=== PATIENT | female | born 1950 | race Caucasian/White ===

== ENCOUNTER 2017-03-28 10:44 | Emergency (ER) ==
[2017-03-28] MEDS ORDERED: DILAUDID 1 MG/ML SYRINGE IM STA (10:51)
[2017-03-28 10:52] VITALS: BP 176/89; TEMP 97.8; BMI 34.5
[2017-03-28 11:08] LABS: BASOPHILS # (AUTO) 0.1 K/uL (0-0.2); BASOPHILS % (AUTO) 0.9 % (0.0-3.0); EOSINOPHILS # (AUTO) 0.2 K/ul (0.0-0.7); EOSINOPHILS % (AUTO) 2.6 % (0.0-7.0); HEMATOCRIT 42.9 % (37.0-47.0); HEMOGLOBIN 14.6 g/dl (12.0-16.0); IMMATURE GRANULOCYTE % (AUTO) 0.3 % (0.0-5.0); LYMPHOCYTES # (AUTO) 2.2 K/uL (0.60-3.4); LYMPHOCYTES % (AUTO) 31.5 (10.0-50.0); MEAN CORPUSCULAR HEMOGLOBIN 29.7 pg (27.0-31.0); MEAN CORPUSCULAR VOLUME 87.2 fl (81.0-99.0); MONOCYTES # (AUTO) 0.5 K/uL (0.4-2.0); NEUTROPHILS % (AUTO) 57.7; PLATELET COUNT 214 10^3/uL (140-440); RED BLOOD COUNT 4.92 10^6/ul (4.20-5.40); WHITE BLOOD COUNT 6.96 K/ul (4.6-10.2)
[2017-03-28] MEDS ORDERED: ZOFRAN 4 MG/2 ML IM STA (11:10)
--- NOTE | 2017-03-28 11:49 | CT ---
EXAM: CT of the maxillofacial region without contrast History: Pain of the left temporomandibular joint. Technique: Multiplanar CT images through the maxillofacial region were obtained without the administ ration of IV contrast Findings: The visualized intracranial contents demonstrate no grossly acute findings. Orbits are in tact. Surrounding soft tissues demonstrate no acute findings. No acute fracture or dislocation. Cl ear paranasal sinuses. Nasal septum is bowed mildly to the right. Bilateral ostiomeatal units are n ot occluded. Mild degenerative changes of the left temporal mandibular joint. The right submandibul ar joint is intact. 1.1 cm left jugular digastric cervical chain lymph node. Impression: 1. Mildly enlarged nonspecific left neck jugulodigastric cervical chain lymph node. Recommend follo wup. 2. 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
[2017-03-28 11:55] LABS: ALANINE AMINOTRANSFERASE 25 U/L (12-78); ALBUMIN 3.8 g/dL (3.4-5.0); ALBUMIN/GLOBULIN RATIO 1.12; ALKALINE PHOSPHATASE 87 U/L (53-141); ANION GAP 13.8; ASPARTATE AMINO TRANSFERASE 25 U/L (15-37); BILIRUBIN,TOTAL 0.62 mg/dL (0.00-1.20); BLOOD UREA NITROGEN 13 mg/dL (7-18); CALCIUM 10.1 mg/dL (8.2-10.2); CARBON DIOXIDE 26 mmol/L (23-31); CHLORIDE 106 mmol/L (98-107); CREATINE KINASE 175 U/L; CREATININE 0.76 mg/dL (0.60-1.30); GLUCOSE 120 mg/dL (82-115); POTASSIUM 3.8 mmol/L (3.5-5.10); SODIUM 142 mmol/L (136-145); TOTAL PROTEIN 7.2 g/dL (5.8-8.1)
[2017-03-28] MEDS ORDERED: DILAUDID 1 MG/ML SYRINGE IVP STA (12:00)
[2017-03-28] MEDS ORDERED: ZOFRAN 4 MG/2 ML IVP STA (12:08)
[2017-03-28] MEDS ORDERED: ATIVAN IVP STA ×2 (12:14→12:48)
--- NOTE | 2017-03-28 12:33 | CT ---
EXAM: CT of the soft tissue neck without contrast History: Left neck pain. Multiplanar CT images through the soft tissue neck were obtained without the administration of IV con trast Comparison: CT maxillofacial 03/28/2017 Findings: Orbits are intact. Visualized intracranial contents demonstrate no gross abnormality. Th e visualized upper lungs are free of consolidation. No acute osseous abnormalities. Epiglottis is n ot thickened. No air-fluid levels seen within the sinuses. Orbits are intact. 1.1 cm mildly enlarg ed left jugular digastric cervical chain lymph node. No discrete thyroid nodules identified by CT. The submandibular glands and parotid glands are not inflamed. Impression: Mildly enlarged nonspecific left jugular digastric cervical chain lymph node. No other significant findings.
[2017-03-28] MEDS ORDERED: SODIUM CHLORIDE 500 ML IV STA (13:01)
--- NOTE | 2017-03-28 13:43 | ED.PDOC ---
General ED Provider: Dr. CAREN OLVERA Chief Complaint: Non-specific Complaint Stated Complaint: neck pain Time Seen by Physician: 11:00 Information Source: Patient Exam Limitations: No limitations Primary Care Provider: MACHO PELAEZ Nursing and Triage Documentation Reviewed and Agree: Yes (no cva symptoms) Miscellaneous Complaint Exam - Complex/Multi-System Complaint/Exam Onset/Duration: chronic with flare ups Symptoms Are: Still present Episodes Lasting: Hours Initial Severity: Mild Current Severity: Mild Location of Pain: left neck Pain Radiates to: left neck no chest pain Character: 0 Aggravatin Alleviatin Associated Signs and Symptoms: Reports: Vomiting. Denies: Confusion, Agitation , Hemoptysis, Chest pain, Palpitations, Edema, Nausea, Diarrhea, Abdominal pain , Back pain, Dysuria, Hematemesis Recent Echo/LV Function: No Respiratory Distress: None JVD Present: No Tachypnea Present: No Stridor Present: No Abdominal Findings: Present: Normal findings Glascow Coma Scale (see protocol): 0 Meningeal Signs Positive: No Focal Weakness: Present: None Focal Sensory Loss: Present: None Gait: Normal Gag Reflex Present: No Babinski Sign: Negative Right, Negative Left Skin Findings: Present: Normal findings Joint Swelling Present: No In-Dwelling Device Present: No Quality Indicators for Cardiac Chest Pain: EKG in 10min. Quality Indicators for AMI: EKG in 10min. Quality Indicator For Non-Traumatic Chest Pain/Syncope: EKG Performed Review of Systems - Review Of Systems Constitutional: Reports: No symptoms Eyes: Reports: No symptoms Ears, Nose, Mouth, Throat: Reports: No symptoms Respiratory: Reports: No symptoms Cardiac: Reports: No symptoms GI: Reports: No symptoms : Reports: No symptoms Musculoskeletal: Reports: Neck pain Skin: Reports: No symptoms Neurological: Reports: No symptoms Endocrine: Reports: No symptoms Hematologic/Lymphatic: Reports: No symptoms All Other Systems: Reviewed and Negative Past Medical History - Past Medical History Previously Healthy: Yes Endocrine: Reports: Hypothyroid Cardiovascular: Reports: Hypertension Respiratory: Reports: None Hematological: Reports: None Gastrointestinal: Reports: None Genitourinary: Reports: None Neuro/Psych: Reports: None Musculoskeletal: Reports: None Cancer: Reports: None Last Menstrual Period: n/a - Surgical History General Surgical History: Reports: None - Family History Family History: Reports: None - Social History Smoking Status: Never smoker Hx Substance Use: No Alcohol Screening: None Physical Exam - Physical Exam Appearance: Well-appearing, No pain distress, Well-nourished Eyes: JUAN, EOMI, Conjunctiva clear ENT: Ears normal, Nose normal, Oropharynx normal Respiratory: Airway patent, Breath sounds clear, Breath sounds equal, Respirations nonlabored Cardiovascular: RRR, Pulses normal, No rub, No murmur GI/: Soft, Nontender, No masses, Bowel sounds normal, No Organomegaly Musculoskeletal: Normal strength, ROM intact, No edema, No calf tenderness Skin: Warm, Dry, Normal color Neurological: Sensation intact, Motor intact, Reflexes intact, Cranial nerves intact, Alert, Oriented Psychiatric: Affect appropriate, Mood appropriate Critical Care Note - Critical Care Note Total Time (mins): 0 Course - Course Hematology/Chemistry: 03/28/17 10:05 03/28/17 10:05 Orders, Labs, Meds: Lab Review 03/28/17 03/28/17 10:05 10:05 WBC 6.96 RBC 4.92 Hgb 14.6 Hct 42.9 MCV 87.2 MCH 29.7 MCHC 34.0 RDW Coeff of Tracy 13.3 Plt Count 214 Immature Gran % (Auto) 0.3 Neut % (Auto) 57.7 Lymph % (Auto) 31.5 [place] % (Auto) 7.0 Eos % (Auto) 2.6 Baso % (Auto) 0.9 Immature Gran # (Auto) 0.0 Neut # 4.0 Lymph # 2.2 [place] # 0.5 Eos # 0.2 Baso # 0.1 Sodium 142 Potassium 3.8 Chloride 106 Carbon Dioxide 26 Anion Gap 13.8 BUN 13 Creatinine 0.76 Estimated GFR (MDRD) 76.00 BUN/Creatinine Ratio 17.10 Glucose 120 H Calcium 10.1 Total Bilirubin 0.62 AST 25 ALT 25 Alkaline Phosphatase 87 Total Creatine Kinase 175 CK-MB (CK-2) 3.0 CK-MB (CK-2) % 1.92600 Troponin I < 0.0100 Total Protein 7.2 Albumin 3.8 Globulin 3.4 Albumin/Globulin Ratio 1.12 Orders Category Date Time Status EKG-(ED ONLY) Stat CARDIO 03/28/17 10:52 Completed EKG-(ED ONLY) Stat CARDIO 03/28/17 12:48 Completed NPO REMINDER: IMAGING ONCE CARE 03/28/17 13:01 Active ED IV/MEDIPORT/POWERPORT .ONCE EMERGENCY 03/28/17 12:00 Active CBC W/ AUTO DIFF Stat LAB 03/28/17 10:05 Completed COMPREHENSIVE METABOLIC PANEL Stat LAB 03/28/17 10:05 Completed CREATINE KINASE Stat LAB 03/28/17 10:05 Completed ESR Stat LAB 03/28/17 10:05 Received TROPONIN I Stat LAB 03/28/17 10:05 Completed 0.9 % Sodium Chloride [Saline Flush] MEDS 03/28/17 12:00 Active 1 syr IVF PRN PRN Hydromorphone HCl [Dilaudid 1 mg/ml Syringe] MEDS 03/28/17 10:51 Discontinued 0.5 mg IM ONCE STA Hydromorphone HCl [Dilaudid 1 mg/ml Syringe] MEDS 03/28/17 12:00 Discontinued 0.5 mg IVP ONCE STA Lorazepam Inj [Ativan] MEDS 03/28/17 12:14 Discontinued 0.5 mg IVP ONCE STA Lorazepam Inj [Ativan] MEDS 03/28/17 12:48 Discontinued 0.5 mg IVP ONCE STA Ondansetron HCl/Pf [Zofran 4 mg/2 ml] MEDS 03/28/17 12:08 Discontinued 4 mg IVP ONCE STA Sodium Chloride 0.9% [Sodium Chloride] 500 ml MEDS 03/28/17 13:[address] MAXILLOFACIAL W/O CONTRAST Stat RADS 03/28/17 10:[address] SOFT TISSUE NECK W/O CONTR Stat RADS 03/28/17 11:18 Completed CTA ANGIO NECK Stat RADS 03/28/17 13:01 Ordered Medications Generic Name Dose Route Start Last Admin Trade Name Freq PRN Reason Stop Dose Admin Sodium Chloride 500 mls @ 500 mls/hr 03/28/17 13:01 Sodium Chloride IV 03/28/17 14:00 BOLUS STA Sodium Chloride 1 syr 03/28/17 12:00 03/28/17 12:14 Saline Flush IVF 1 syr PRN PRN Administration To flush IV Discontinued Medications Generic Name Dose Route Start Last Admin Trade Name Freq PRN Reason Stop Dose Admin Hydromorphone HCl 0.5 mg 03/28/17 10:51 03/28/17 11:07 Dilaudid 1 Mg/Ml Syringe IM 03/28/17 10:52 0.5 mg ONCE STA Administration Hydromorphone HCl 0.5 mg 03/28/17 12:00 03/28/17 12:12 Dilaudid 1 Mg/Ml Syringe IVP 03/28/17 12:01 0.5 mg ONCE STA Administration Lorazepam 0.5 mg 03/28/17 12:14 03/28/17 12:23 Ativan IVP 03/28/17 12:15 0.5 mg ONCE STA Administration Lorazepam 0.5 mg 03/28/17 12:48 Ativan IVP 03/28/17 12:49 ONCE STA Ondansetron HCl 4 mg 03/28/17 12:08 03/28/17 12:15 Zofran 4 Mg/2 Ml IVP 03/28/17 12:09 4 mg ONCE STA Administration Vital Signs: Temp Pulse Resp BP Pulse Ox 03/28/17 10:46 97.8 F 74 20 176/89 H 96 Departure - Departure Time of Disposition: 15:00 (ct reports provided to pt ) Disposition: HOME SELF-CARE Discharge Problem: Neck pain Instructions: Neck Pain (ED) Condition: Good Pt referred to PMD for follow-up: Yes Additional Instructions: Please call your Family Physician as soon as possible to schedule a follow-up appointment. Allergies/Adverse Reactions: Allergies No Known Allergies Allergy (Unverified 07/03/16 13:58) Home Medications: Ambulatory Orders Diazepam 5 mg PO BEDTIME PRN #50 07/03/16 Levothyroxine Sodium [Levo-T] 25 mcg PO DAILY 07/03/16 Lisinopril 5 mg PO DAILY 07/03/16 Naproxen [Naprosyn] 500 mg PO BID PRN #100 07/03/16 Disposition Discussed With: Patient
[2017-03-28 13:59] LABS: ERYTHROCYTE SEDIMENTATION RATE 14 mm/hr (0-20); ESR INTERNAL QC INTERNAL QC VALID
--- NOTE | 2017-03-28 14:14 | CT ---
EXAM: CT angiogram neck. HISTORY: Left-sided neck pain. COMPARISON: Neck CT earlier the same day. TECHNIQUE: Multiple axial images of the neck were obtained prior to and following intravenous admini stration of 125 mL of Omnipaque 350, low osmolar. Multiplanar reformatted images and three -dimensio nal reconstructed images were created on an independent workstation. FINDINGS: The visualized anterior cerebral and middle cerebral arteries are patent. Posterior cereb ral arteries are also patent. Basilar artery is normal in caliber. Both vertebral arteries are norm al in course and caliber although portions of the proximal left vertebral artery are poorly seen due to adjacent intravenous contrast. Both common carotid arteries are normal in course and caliber. Both external carotid arteries are pa tent. Both internal carotid arteries are normal in course and caliber. Enlarged left cervical lymph node that level IIa again noted measuring up to 1 cm short axis. No sub cutaneous edema or fluid collections noted. No acute osseous abnormality identified. Lung apices ar e clear. IMPRESSION: Normal CT angiogram of the neck.
== END 2017-03-28 15:09 | disposition home or self-care (01) ==
LOC: ED 10:44
DX: M54.2 Cervicalgia (principal); R11.10 Vomiting, unspecified; I10 Essential (primary) hypertension; E03.9 Hypothyroidism, unspecified
CPT/HCPCS: 36415; 80053; 82550; 82553; 84484; 85025; 85651; 93005; 93010; 96372; 96374; 96375; 96376; 99283

== ENCOUNTER 2018-08-14 15:30 | Outpatient (RCR) ==
--- NOTE | 2018-07-16 14:22 | RS.OPPTEV2 ---
Date of Note: 07/16/18 Visit #: 1 Number of visits approved by Insurance: n/a Date of Evaluation: 07/16/18 Payer Source: MEDICARE Surgery Performed?: No Treatment Diagnosis: Amyotrophic lateral sclerosis History of Condition/Mechanism of Injury:: pt has been having symptoms since 2016 and was diagnosed with ALS 03/2018. 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 Functional Limitations: Pushing, Pulling, Lifting, Carrying, Standing, Bending, Squatting, Ambulation, Community Access/Integration Current Subjective/complaints:: pt states she is still helping her with ADL's due to his CVA. pt states she feels she is getting weaker and weaker. pt also reports she is having difficulty with swallowing and frequently chokes on food. Treatment Side (optional): N/A *Precautions: fall precautions Medical History Medical History: Hypertension, Arthritis Medical History Comments:: ALS Surgical History: Hysterectomy Surgical History Comments:: myringotomy w tube placement Smoking Status: Never smoker Hx Home Medications: simvastatin, rilvzole, levothyroxine, lisinopril, clonazepam, citalopram and vitamins Patient's Goals: get stronger or atleast not lose more strength. Functional Outcome Measure LE Functional Scale: 24 - G Codes & Severity Modifier G Codes & Modifier: n/a Source of G Code score: n/a Observation - Observation Posture: Forward Head, Rounded Shoulders, Increased Thoracic Kyphosis Handedness: Right Gait - Gait Pattern General Gait Pattern Observation: Crouched Gait, Decrease Stride Lngth (R), Decrease Stride Lngth (L) Gait Comments: pt amb with decreased heel strike/toe off gait pattern with decreased step length and flexed posture. General Range of Motion: WFL's all 4 extr's Muscle Strength: BUE shld flex/ext 4/5, elbow flex/ext 4+/5. RLE hip flex 3+/5 , hip abd 3+/5, add 4/5 knee flex/ext 4-/5, ankle DF 3/5, PF 4-/5. LLE hip flex 4-/5, knee flex/ext 4/5, hip add 4/5, abd 4/5, ankle DF/PF 4/5 Palpation Palpation Findings: None/Normal Sensation - Sensation Right Upper Extremity: Intact/Normal Left Upper Extremity: Intact/Normal Right Lower Extremity: Intact/Normal Left Lower Extremity: Intact/Normal Balance - Sitting Balance Static Sitting Balance: Good Dynamic Sitting Balance: Good - Standing Balance Static Standing Balance: Fair Dynamic Standing Balance: Poor - Comments Balance Assessment Comments: tinetti balance scale: 13/28, which is consistent with high risk of falls. Interventions - Exercise/Activities/Manual Therapy Exercises/Activities: pt performed BLE AP, hip isometric add, SLR, hip abd/add x 5 -10 reps each with rest periods between ex. Manual Therapy: n/a HOME EXERCISE PROGRAM: pt given written HEP including: AP, isometric hip add, SLR, hip abd/add, seated hip flex. - Charges Timed Code Treatment Minutes: 51 Total Treatment Time: 62 Procedures billed for this date of service:: eval med, ex EVALUATION COMPLEXITY LEVEL EVALUATION COMPLEXITY LEVEL: HISTORY: Medium (OA, HTN, ALS), EXAM OF BODY SYSTEMS: Medium (endurance, posture, balance, strength, transfers, gait), CLINICAL PRESENTATION: Medium, CLINICAL DECISION MAKING: Medium Assessment Assessment: pt presents with slurred speech. pt also with decreased strength, balance, endurance as well as gait and transfer ability. Feel pt would benefit from skilled PT for therex for strengthening, balance as well as gait training. Feel pt is safer with rwx than without. Patient Education: Education of Plan of Care Rehab Potential: Good Short Term Goals Goal #1: pt amb in dept with AD independently no LOB Goal to be met by: 08/06/18 Goal #2: pt with improved balance as noted by tinetti score 16 Goal to be met by: 08/06/18 Goal #3: Present with improved strength BLE 4/5 Goal to be met by: 08/06/18 Goal #4: pt independent with initial HEP Goal to be met by: 08/06/18 Mems Engineer Goals Goal #1: pt amb with AD functional community distances SBA Goal to be met by: 08/27/18 Goal #2: pt with improved with tinetti score Goal to be met by: 08/27/18 Goal #3: pt report ability to continue to perform normal household activities Goal to be met by: 08/27/18 Plan - Treatment to be Provided Procedures: Therapeutic Exercises, Therapeutic Activity, Gait Training, Neuromuscular Rehab, Patient Education Modalities: No Modalities - Treatment Plan Frequency: 2-3x a week Duration: 6 weeks Dates of Residential Goals: 08/27/18 Expiration date of current Insurance Approval:: n/a - Treatment Code (1) Amyotrophic lateral sclerosis Code(s): G12.21 - AMYOTROPHIC LATERAL SCLEROSIS (2) Muscle weakness Code(s): M62.81 - MUSCLE WEAKNESS (GENERALIZED) (3) Gait difficulty Code(s): R26.9 - UNSPECIFIED ABNORMALITIES OF GAIT AND MOBILITY (4) Impairment of balance Code(s): R26.89 - OTHER ABNORMALITIES OF GAIT AND MOBILITY
--- NOTE | 2018-07-21 15:53 | RS.OPPTDN ---
Subjective Date of Note: 07/21/18 Visit #: 3 Number of visits approved by Insurance: 2-3x6 Date of Evaluation: 07/16/18 Payer Source: MEDICARE Treatment Diagnosis: Amyotrophic lateral sclerosis Current Subjective/complaints:: Patient states, "I'm alright" when asked about her R leg due to recent fall. She has nickel sized scrape with scab to the R knee and no bruising noted. She says she was a little sore to the R lower leg just below the knee (medially). She denies any soreness from PT exercises, but general fatigue. *Precautions: fall precautions Interventions - Exercise/Activities/Manual Therapy Exercises/Activities: Patient begins with general LE strengthening: QS, SAQ 2# , SLR, ham curls and DF with green tband, hip abd in hooklying with green tband , ball squeezes, Bridging, alternate LE lift with 2# each LE, 3# wand for bilateral shoulder flexion, chest presses, alternate LE lift with UE wand lift 2 # each leg, Trunk rotation with ball, resistance given for trunk laterally ( 2x5 ). All 2x10 reps. 7 and 9# digiflexor x 12 each hand. Sitting at EOB: Ant/ post and lateral resistance for improving trunk bal 2x5 eyes open and closed. 3 # wand for bilateral shoulder flexion, green tband for scapular retraction 2x10. Reaching for cones diagonally with 2# cuff on each UE and stacking them on bedside table 3x6. Standing CGA for hip abd, toe raises alternately x 10. Total minutes of Exercise: 38 Manual Therapy: n/a HOME EXERCISE PROGRAM: pt given written HEP including: AP, isometric hip add, SLR, hip abd/add, seated hip flex. - Charges Timed Code Treatment Minutes: 38 Total Treatment Time: 38 Procedures billed for this date of service:: ex3 Assessment: Patient presents to dept with w/c for safety by staff. She brings WB. Patient jon all therex with intermittent rest breaks. Patient jon progression of weight and alternating UE/LE well. She does have posterior sway with trunk exercises such as postural pull backs and bilateral UE elevation. Patient is able to maintain bal with resisted ant/post/lateral nudging. She is able to reach across and perform diagonal reach well. Patient Education: Home Exercise Program, Home Safety, Education of Plan of Care Patient demonstrates compliance with HEP?: Yes Short Term Goals Goal #1: pt amb in dept with AD independently no LOB Goal to be met by: 08/06/18 Comments:: Will work on next session and within the dept Goal #2: pt with improved balance as noted by tinetti score Goal to be met by: 08/06/18 Goal #3: Present with improved strength BLE 4/5 Goal to be met by: 08/06/18 Goal #4: pt independent with initial HEP Goal to be met by: 08/06/18 Head Wrestling Coach Goals Goal #1: pt amb with AD functional community distances SBA Goal to be met by: 08/27/18 Goal #2: pt with improved with tinetti score Goal to be met by: 08/27/18 Goal #3: pt report ability to continue to perform normal household activities Goal to be met by: 08/27/18 Plan Dates of Head Wrestling Coach Goals: 08/27/18 Expiration date of current Insurance Approval:: 08/27/18 PLAN: Progress therex to UE/LE and core to provide increased bal with gait and prevent falls.
--- NOTE | 2018-07-22 09:29 | RS.OPPTDN ---
Subjective Date of Note: 07/18/18 Visit #: 2 Number of visits approved by Insurance: 2-3x6, Reassess at 10th Date of Evaluation: 07/16/18 Payer Source: MEDICARE Treatment Diagnosis: Amyotrophic lateral sclerosis Current Subjective/complaints:: Patient says she has tried HEP. When asked, patient denies having difficulty with ADLs, but says she does want to gain strength. States she does not use any AD at home due to open floor plan. She is accompanied by nimisha. *Precautions: fall precautions Interventions - Exercise/Activities/Manual Therapy Exercises/Activities: Patient performs QS, SAQ 1 1/2#, hams curls/DF with red tband, hip abd in hooklying red tband, ball squeezes, trunk rotation with ball, resisted trunk rotation (x5), isometric hip flexion, bridging, alternating LE lift with 1 1/2# ea and 1# wand for bilateral UEs, SLR all x 12 reps. Sitting: isometrics for sitting bal (nudging ant/post/laterally x 3 ea), 7# digiflexors bilateral hands x 12 ea, 2# wand for bilateral shoulder flexion, scap retraction with red tband, alternate LAQ 1 1/2#, reaching diagonals using cones across body at different heights 2x6 cones and stack. Total minutes of Exercise: 38 Manual Therapy: n/a HOME EXERCISE PROGRAM: pt given written HEP including: AP, isometric hip add, SLR, hip abd/add, seated hip flex. - Charges Timed Code Treatment Minutes: 38 Total Treatment Time: 38 Procedures billed for this date of service:: EX2, neuro1 Assessment: As patient was amb back to our dept with granddaughter and I, her R foot tripped on our wall chair. I was on the L side of her and as she was loosing her bal. I supported her on the L side and she fell onto her R knee. She had a small scrape to the R knee anteriorally and tiny scrape without bleeding to the R palm. Patient was asked several times about going to the ER and she denied saying repeatedly she was fine. She was assisted up x 2 PT staff and transferred to w/c. Patient was able to perform all therex without reporting pain or c/o's. No visual difficulty noted. She requires cueing to maintain erect posture with sitting exercises that require UEs therex. She should benefit from further therex to improve general strength, bal, and gait. She is assisted out of dept to car via w/c. Patient Education: Education of diagnosis, Home Exercise Program, Home Safety, Education of Plan of Care Patient demonstrates compliance with HEP?: Yes Short Term Goals Goal #1: pt amb in dept with AD independently no LOB Goal to be met by: 08/06/18 Goal #2: pt with improved balance as noted by tinetti score [id number] Goal to be met by: 08/06/18 Goal #3: Present with improved strength BLE 4/5 Goal to be met by: 08/06/18 Goal #4: pt independent with initial HEP Goal to be met by: 08/06/18 Progress towards Goal:: Progressing Barrel Cleaner Goals Goal #1: pt amb with AD functional community distances SBA Goal to be met by: 08/27/18 Goal #2: pt with improved with tinetti score 19/28 Goal to be met by: 08/27/18 Goal #3: pt report ability to continue to perform normal household activities Goal to be met by: 08/27/18 Plan Dates of Barrel Cleaner Goals: 08/27/18 Expiration date of current Insurance Approval:: 08/27/18 PLAN: Continue TIW for therex and gait training
--- NOTE | 2018-07-23 11:50 | RS.BEDDYS ---
Subjective Number of treatment sessions: 1 Date of Evaluation: 07/23/18 Treatment Diagnosis: ALS, speech and swallow difficulty Current Level of Function: This 67 year old female was referred to speech therapy for speech and swallow difficulty. She was diagnosed with ALS in March 2018. Over four-five months she has noted a change with voice production and swallow function. Her swallow function changes put her at risk for aspiration. Current Diet: Self-restricted regular textures. Mechanical soft and puree textures. thin liquids Current Subjective/complaints:: The patient is verbal, but requires occasional repetition due to speech intelligibilty and voice production. She reported her voice "stops and feels like she can't talk." She went on to state, she feels her breath support is adequate, however she loses her voice when speaking over long periods of time. For swallowing concerns, she did not report or verbalize any concerns initially. However, after questioning from the APPLICATION INTEGRATION SPECIALIST and her granddaughter report, she did verbalize difficulty with majority of food and liquids consumed. The granddaughter reported, the patient "gets choked on everything." She also reported she has gotten worse recently and is now coughing or choking at every meal. The granddaughter and patient also stated there are less than ten food items that she consumes on a daily basis that are safely swallowed without difficulty. Medical History Comments:: ALS Hx Home Medications: Refer to medications list in chart for complete list. Patient's Goals: To consume safest and least restrictive diet. To improve voice production, speaking endurance, and speech intelligibility. General Information - General Ability to Follow Directions: Excellent Is Patient able to Repeat Directions?: Yes Oral Expression Ability: Moderate Impairment (Occasional repetition with longer speech utterances. Fatigue after 45-60 minutes speaking decreases speech intelligibility.) - Voice Voice Quality: Weak Voice Pitch: Mildly Low, Limited Variation (Difficulty with rising pitch) Voice Loudness: Moderately Soft/Quiet, Limited Variation Oral-Facial Assessment - Dental/Labial Teeth Characteristics: Intact/Normal, Missing (2 molars missing upper.) Teeth Comment: Teeth in great condition. Will not affect mastication. Lip Protrusion: Reduced ROM Lip Retraction: Reduced ROM Puff Cheeks: Reduced Strength Lips Comment: Lip movements completed w/o mirror for feedback-which may improve ROM - Lingual Protrusion: Reduced ROM Retraction: Reduced ROM Tip Lateralization: Reduced ROM Repeated Tip Lateralization: Reduced ROM Tip Elevation: Weak Repeated Tip Elevation: Weak Comments: Second trial of lingual lateralization improved with v/v cues. Lingual tremor noted - Comments/Additional Info. Comments:: During oral motor examination head movements and eye movements included to move tongue. mandibular strength equal and adeuqate for mastication and speech movements. Food Presentation - Solids Food Presented: Mechanical Soft (finger-food self fed.) Behaviors/Comments: Three trials were presented. Pt was given miriam cracker and consumed 1/2 in three bites. Bite sizes were reported appropriate from pt. Pt took initial bite on right side. Food maintained in front of oral cavity. APPLICATION INTEGRATION SPECIALIST observed poor labial seal, decreased rotary chew, difficulty with bolus manipulation, poor to no A-P movement with bolus, pocketing in right sulcus, and difficulty with swallow initiation. Second trial pt was given v/v cues, however demonstrated similar behaviors. Liquid wash was presented and pt manipulated bolus to back of mouth for improved coordination with swallow initiation. Third trial was presented and pt had overt s/s of aspiration. However, reported coughing was due to habit, vs feeling food stuck in throat or residuals on lingual surface. Food Presented: Pureed (More pudding texture than puree.) Behaviors/Comments: Pt consumed two trials via spoon, self fed. Initial trial, pt placed spoon midline and manipulated bolus to back of mouth. She required seven seconds to initiate swallow. Second trial was similiar with 8 second swallow delay and head movements, throat touching to finish swallow. - Liquids Liquid Presented: Thin (1/4, 1/2 tsp via spoon controlled by APPLICATION INTEGRATION SPECIALIST.) Behaviors/Comments: 1/4 tsp trial presented to pt midline. Pt consumed thin liquids with head in neutral position and 3x swallow. Discoordination of muscle movments were observed with cervical palpation. 1/2 tsp pt had immediate cough and overt s/s of aspiration. Liquid Presented: Rewey (Via open cup pt presentation.) Behaviors/Comments: The APPLICATION INTEGRATION SPECIALIST presented the NT liquids and instructed pt to take a drink. Laryngeal palpation was completed during three trials. Pt had 3 second average swallow delay. minimal laryngeal elevation was noted and lingual pumping was felt during palpation. Large air gulps were heard during cervical auscultation. No overt s/s of aspiration were observed. - Recommendations: Dysphagia Evaluation Dietary Recommendations: Dysphagia Pureed, Dysphagia Mechanical Soft, Rewey-thick liquids Comments:: Pt was educated on regular diet and mixed texture consistencies restrictions. nectar thick liquid consistency was recommended for safe swallowing. Pt was educated on miya free-water protocol for home environment as water was requested. No thin liquids with PO intake to reduce risk for aspiration pneumonia. Small frequent meals were discussed and will be further educated and recommended in follow-up treatment. Dysphagia Swallow Precautions/Strategies: Sitting Upright (90 deg), No Straw, Liquids from Cup, Small Bites and Sips, Alternate Liquids/Solids Comments:: Pt to reduce duration with meals from 45 minutes to 25 minutes. All meals sitting-upright. No PO intake with fatigue or sleepiness, post PT, or long speaking durations. Allow muscle/vocal rest prior to PO consumption. Monitor s/s of aspiration. Follow safe swallow precautions and aspiration precuations during all PO intake. Monitor dairy intake, and limit with meals. - Summary Dysphagia Evaluation Summary: Pt presents with moderat-severe oropharyngeal dysphagia. The patient's deficits are characterized by decreased ROM with labial and lingual function, decreased coordination with bolus manipulation, decreased pressure within oral cavity for swallow initiation, lingual pumping and moderate delay in swallow initiation, minimal laryngeal elevation and excursion, multiple swallows with liquids and food textures, coughing and overt s/s of aspiration during PO intake. Pt is at risk for aspiration with PO intake and further skilled ST for education and training is warranted for safety with PO intake. Further Therapy Indicated?: Yes Rehab Potential: Fair (Pt has degenerative disease, however compensation and maintenance of current function will be primary goals for quality of life.) Functional Reporting G Codes: Current CL Goal CK Severity Impairment Rationale: Pt is on mechanical soft and puree diet textures with recommended nectar thick liquids. Short Term Goals Problem: oral motor Goal #1: Pt to complete oral motor exercises to increase ROM and coord 5x/10 reps. Goal to be met by: 08/13/18 Problem: Swallow delay Goal #2: thermal/sour stimulation to improve swallow initiation to 3-4 seconds. Goal to be met by: 08/27/18 Problem: Aspiration Goal #3: Pt to safely swallow liquids with PO intake w/o overt s/s of aspiration Goal to be met by: 09/10/18 Problem: Aspiration Goal #4: Safely consume diet textures presented over 25 min w/o overt s/s of asp. Goal to be met by: 09/10/18 Detention Goals Problem: Safe swallow Goal #1: Pt to verbalize safe swallow education to decrease risk for asp Goal to be met by: 09/17/18 Problem: Safe swallow Goal #2: Pt to demonstrate use of comp/safe swallow strategies with PO intake. Goal to be met by: 09/17/18 Problem: Safe Swallow Goal #3: Pt to consume typical meal and liquids w/o overt s/s of aspiration. Goal to be met by: 09/17/18 Plan Duration of Treatment: 8 weeks Frequency of Treatment: 1x/week Anticipated Discharge Destination: Home Comments: Pt to begin therapy 1x/week with caregiver present to become educated on safe swallowing precautions. - Treatment Code (1) Oropharyngeal dysphagia Code(s): R13.12 - DYSPHAGIA, OROPHARYNGEAL PHASE
--- NOTE | 2018-07-23 13:28 | RS.OPPTDN ---
Subjective Date of Note: 07/23/18 Visit #: 4 Number of visits approved by Insurance: Reassess at 10th Date of Evaluation: 07/16/18 Payer Source: MEDICARE Treatment Diagnosis: ALS, speech and swallow difficulty Current Subjective/complaints:: Patient says she hasn't had any trouble jon exercises. She says she tries to do everything a little slower and take her time at home. She says she has been walking at home without AD. *Precautions: fall precautions Interventions - Exercise/Activities/Manual Therapy Exercises/Activities: Patient begins with passive hamstring stretching bilaterally, SKTC, and lower trunk rotation x 3 due to pt c/o cramping to the posterior thigh. She performs QS, SAQ increased to 2#, hams curls/DF increased to green tband, hip abd in hooklying increased to green tband, ball squeezes, trunk rotation with ball, resisted trunk rotation (x5), isometric hip flexion, discontinued bridging due to hamstring spasm, alternating LE lift increased to 2 # ea and 1# wand for bilateral UEs, SLR (x8) all 2 x 12 reps. Sittin# wand for bilateral shoulder flexion, scap retraction progressed to green tband, alternate LAQ 2#, reaching diagonals and challenging ant/post trunk with leaning forward for ball near floor and up above head multiple reps using 2# cuff weights across body at different heights. EOB for UBE x 2 mins forward, 2 backwards with 2# cuff weights on each wrist. Then, standing the same time and position. Gait training using NBQC on the R with granddaughter pushing w/c behind if needed. Patient slow, cautious and after 20', she says she does not need AD and sets it down. She does however, use handrail on the R and BLOW OFF WORKER on the L x 120' to the front door. She receives intermittent cueing for cane usage with LE's and to look forward and hold onto handrail/my hand. No LOB observed. Total minutes of Exercise: 53 Manual Therapy: n/a HOME EXERCISE PROGRAM: pt given written HEP including: AP, isometric hip add, SLR, hip abd/add, seated hip flex. - Charges Timed Code Treatment Minutes: 53 Total Treatment Time: 53 Procedures billed for this date of service:: ex2, neuro, gt Assessment: Patient just evaluated today by our PATTERNATOR prior our session. Somewhat fatigued, but able to perform all given therex. She does have hamstring muscle spasm during bridging bilaterally. This resolved after passive stretching. She maintains better bal with sitting exercises, not swaying as much with ant/low pressure boiler tender leans and none with using UBE. She is able to jon ~5 mins standing for UBE today and able to amb to/from dept using NBQC, then progressed to no AD, but used handrail and BLOW OFF WORKER of CBX OPERATOR CGA. Patient Education: Education of diagnosis, Home Exercise Program, Home Safety Patient demonstrates compliance with HEP?: Yes Short Term Goals Goal #1: pt amb in dept with AD independently no LOB Goal to be met by: 08/06/18 Progress towards Goal:: Progressing Goal #2: pt with improved balance as noted by tinetti score Goal to be met by: 08/06/18 Goal #3: Present with improved strength BLE 4/5 Goal to be met by: 08/06/18 Goal #4: pt independent with initial HEP Goal to be met by: 08/06/18 Progress towards Goal:: Progressing Metal Flow Coordinator Goals Goal #1: pt amb with AD functional community distances SBA Goal to be met by: 08/27/18 Goal #2: pt with improved with tinetti score Goal to be met by: 08/27/18 Goal #3: pt report ability to continue to perform normal household activities Goal to be met by: 08/27/18 Plan Dates of Metal Flow Coordinator Goals: 08/27/18 Expiration date of current Insurance Approval:: 08/27/18 PLAN: Continue with progressive therex and bal exercises
--- NOTE | 2018-07-25 13:37 | RS.CXNS ---
Date of scheduled appointment: 07/25/18 Type: Cancel Reason for Cancel/NS: granddaughter called says she has a migraine.
--- NOTE | 2018-07-28 16:24 | RS.OPPTDN ---
Subjective Date of Note: 07/28/18 Visit #: 5 Number of visits approved by Insurance: Reassess at 10th Date of Evaluation: 07/16/18 Payer Source: MEDICARE Treatment Diagnosis: ALS, speech and swallow difficulty Current Subjective/complaints:: Patient says she feels she is gaining strength. She says that she has not fallen at home since beginning therapy, but [facility] in the [facility]. *Precautions: fall precautions Interventions - Exercise/Activities/Manual Therapy Exercises/Activities: Patient begins with passive hamstring stretching bilaterally, SKTC, and lower trunk rotation x 3 She performs QS, SAQ increased to 2#, hams curls/DF increased to green tband, hip abd in hooklying increased to green tband, ball squeezes, trunk rotation with ball, resisted trunk rotation (x5), isometric hip flexion, bridging, alternating LE lift increased to 2# ea and 1# wand for bilateral UEs, SLR (x10) all 2 x 12 reps. Sittin# wand for bilateral shoulder flexion, scap retraction progressed to green tband, alternate LAQ 2#, reaching diagonals and challenging ant/post trunk with leaning forward for ball near floor and up above head multiple reps using 2# cuff weights across body at different heights. EOB for UBE x 2 mins forward, 2 backwards with 2 1/2# cuff weights on each wrist. Then, standing the same time and position. Standing at railing with CGA hip abd,marching x 10. Stationary bike forward x 2 1/2mins, 1 1/2 mins retro. Patient slow, cautious and after 20', she says she does not need AD and sets it down. She does however, use handrail on the R and WASH OIL COOLER OPERATOR on the L x 120' to the front door. She receives intermittent cueing for cane usage with LE's and to look forward and hold onto handrail/my hand. No LOB observed. Total minutes of Exercise: 43 Manual Therapy: n/a HOME EXERCISE PROGRAM: pt given written HEP including: AP, isometric hip add, SLR, hip abd/add, seated hip flex. - Charges Timed Code Treatment Minutes: 43 Total Treatment Time: 43 Procedures billed for this date of service:: ex2, neuro1 Assessment: Patient progressing with general therex demo improved strength and jon to all UE/LE/trunk. Patient continues to demo slight unsteadiness intermittently. She is performing HEP well. Patient Education: Home Exercise Program, Home Safety, Education of Plan of Care Patient demonstrates compliance with HEP?: Yes Short Term Goals Goal #1: pt amb in dept with AD independently no LOB Goal to be met by: 08/06/18 Progress towards Goal:: Progressing Goal #2: pt with improved balance as noted by tinetti score 16/28 Goal to be met by: 08/06/18 Goal #3: Present with improved strength BLE 4/5 Goal to be met by: 08/06/18 Goal #4: pt independent with initial HEP Goal to be met by: 08/06/18 Progress towards Goal:: Progressing Diabetologist Goals Goal #1: pt amb with AD functional community distances SBA Goal to be met by: 08/27/18 Goal #2: pt with improved with tinetti score 19/28 Goal to be met by: 08/27/18 Goal #3: pt report ability to continue to perform normal household activities Goal to be met by: 08/27/18 Plan Dates of Diabetologist Goals: 08/27/18 Expiration date of current Insurance Approval:: 08/27/18 PLAN: Patient to continue with progressive bal and strengthening.
--- NOTE | 2018-07-30 16:46 | RS.OPPTDN ---
Subjective Date of Note: 07/30/18 Visit #: 6 Number of visits approved by Insurance: Reassess at 10th Date of Evaluation: 07/16/18 Payer Source: MEDICARE Treatment Diagnosis: ALS, speech and swallow difficulty Current Subjective/complaints:: Patient says we are helping her and she is gaining strength. *Precautions: fall precautions Interventions - Exercise/Activities/Manual Therapy Exercises/Activities: Patient begins with passive hamstring stretching bilaterally, SKTC, and lower trunk rotation x 3 She performs QS, SAQ increased to 2#, hams curls/DF increased to green tband, hip abd in hooklying increased to green tband, ball squeezes, trunk rotation with ball, resisted trunk rotation (x5), isometric hip flexion, bridging, alternating LE lift increased to 2# ea and 3# wand for bilateral UEs, SLR (x10) all 2 x 12 reps. Sittin# wand for bilateral shoulder flexion, scap retraction progressed to green tband, alternate LAQ 2#, UBE unavailable. Standing at railing with CGA hip abd,marching x 10. Stationary bike forward x 3 1/2mins, 1 1/2 mins retro. Patient slow, cautious and amb with handrail on the R side and TAX ATTORNEY for the L CGAQ without LOb, however, can distract easily. Total minutes of Exercise: 38 Manual Therapy: n/a HOME EXERCISE PROGRAM: pt given written HEP including: AP, isometric hip add, SLR, hip abd/add, seated hip flex. - Charges Timed Code Treatment Minutes: 38 Total Treatment Time: 38 Procedures billed for this date of service:: ex3 Assessment: Patient continues to advance with strengthening to LEs and UEs maintaining sitting bal as exercises are progressed. She demo less unsteadiness with gait in our dept. Patient Education: Home Exercise Program, Home Safety Patient demonstrates compliance with HEP?: Yes Short Term Goals Goal #1: pt amb in dept with AD independently no LOB Goal to be met by: 08/06/18 Progress towards Goal:: Progressing Goal #2: pt with improved balance as noted by tinetti score Goal to be met by: 08/06/18 Goal #3: Present with improved strength BLE 4/5 Goal to be met by: 08/06/18 Progress towards Goal:: Progressing Goal #4: pt independent with initial HEP Goal to be met by: 08/06/18 Progress towards Goal:: Progressing Porcelain Enamel Installer Goals Goal #1: pt amb with AD functional community distances SBA Goal to be met by: 08/27/18 Goal #2: pt with improved with tinetti score Goal to be met by: 08/27/18 Goal #3: pt report ability to continue to perform normal household activities Goal to be met by: 08/27/18 Plan Dates of Porcelain Enamel Installer Goals: 08/27/18 Expiration date of current Insurance Approval:: 08/27/18 PLAN: Continue to progress therex for the UEs and LEs/trunk to gain bal and control for gait.
--- NOTE | 2018-08-01 12:15 | RS.DYSPHTX ---
Dysphagia Treatment Note Date of Note: 08/01/18 Visit #: 2 Time of Treatment: 11:00 Subjective: Pt reported no new concerns. She was accompanied by her granddaughter whom is her caregiver. The granddaugther reported the patient was increasing her awareness with textues she can/cannot consume. She also reported going to buy thickener this date. No aspiration episodes reported. Total treatment time: 60 - Short Term Goals Goal #1: Pt to complete oral motor exercises to increase ROM and coord 5x/10 reps. Goal #2: thermal/sour stimulation to improve swallow initiation to 3-4 seconds. Goal #3: Pt to safely swallow liquids with PO intake w/o overt s/s of aspiration Goal #4: Safely consume diet textures presented over 25 min w/o overt s/s of asp. - Long-Term Goals Goal #1: Pt to verbalize safe swallow education to decrease risk for asp Goal #2: Pt to demonstrate use of comp/safe swallow strategies with PO intake. Goal #3: Pt to consume typical meal and liquids w/o overt s/s of aspiration. Assessment: Pt was given verbal education on evaluation to STG and LTGs. The FUR FINISHER SEAMSTRESS began education with lingual/labial coordination. Discussion with aspiration risks and precuations were completed. Oral-motor exercises were reviewed, but not started yet this date. The FUR FINISHER SEAMSTRESS assessed pt with thickener education and mixing nectar-thick drinks. The patient and caregiver verbalized and demonstrated the steps to mixing a nectar thick drink. temperature precautions were also educated, as well as different types of liquids, and use of ice. The patient consumed 4 oz of nectar thick liquids without overt s/s of aspiration. - Units Charged Swallowing Therapy: 4 - Plan Frequency of Treatment: 1x/week Duration of Treatment: 10 weeks Comments: Next session the patient will begin oral motor exercises, diet trials , trial compensatory swallow strategies, and review anatomy and physiology of the swallow.
--- NOTE | 2018-08-04 16:06 | RS.OPPTDN ---
Subjective Date of Note: 08/04/18 Visit #: 7 Number of visits approved by Insurance: Reassess at 10th Date of Evaluation: 07/16/18 Payer Source: MEDICARE Treatment Diagnosis: ALS, speech and swallow difficulty Current Subjective/complaints:: Patient says, "I am stronger." She says her bal seems to be getting better and she is able to swallow and eat with less fear of choking. *Precautions: fall precautions Interventions - Exercise/Activities/Manual Therapy Exercises/Activities: Patient continues with passive hamstring stretching bilaterally, SKTC, piriformis, and lower trunk rotation x 3 She performs QS, SAQ increased to 3#, hams curls/DF increased to green tband, hip abd in hooklying increased to green tband, ball squeezes, trunk rotation with ball, resisted trunk rotation (x5), isometric hip flexion, bridging, alternating LE lift increased to 2# ea and 3# wand for bilateral UEs, SLR (x10) all 2 x 12 reps. Supine chest press and overhead bilateral shoulder flexion 6# 2x10. Sitting: Nudging with eyes open and closed for Ant/post/lateral shift 2x3. 3 # wand for bilateral shoulder flexion, scap retraction green tband, alternate LAQ 3#, UBE unavailable. Standing at railing with CGA hip abd,marching x 10. Stationary bike forward x 3 1/2mins, 1 1/2 mins retro. Began leg presses @ 30 and 45# x 12 reps. Patient slow, cautious and amb with handrail on the R side and HOMEMAKER COMPANION for the L hand without LOB in hallway, however, does occasionally stumble with the R LE due to gripping of shoe (pt says). Total minutes of Exercise: 46 Manual Therapy: n/a HOME EXERCISE PROGRAM: pt given written HEP including: AP, isometric hip add, SLR, hip abd/add, seated hip flex. - Charges Timed Code Treatment Minutes: 46 Total Treatment Time: 46 Procedures billed for this date of service:: neuro1, ex2 Assessment: Patient experiencing improved strength generally throughout her body acknowledging improvement in swallowing/eating. She continues to occasionally trip at the R LE she admits from her shoes, but she easily regains balance in hallway by using R handrail. Janneth's gait continues to require at lease CGA and 1 HOMEMAKER COMPANION to ensure safety with amb to our dept due to occasional trip. She continues to progress well with all UE/LE and trunk strengthening this week. Patient Education: Home Exercise Program, Home Safety Patient demonstrates compliance with HEP?: Yes Short Term Goals Goal #1: pt amb in dept with AD independently no LOB Goal to be met by: 08/06/18 Progress towards Goal:: Progressing Goal #2: pt with improved balance as noted by tinetti score Goal to be met by: 08/06/18 Comments:: Will reassess at 10th visit Goal #3: Present with improved strength BLE 4/5 Goal to be met by: 08/06/18 Progress towards Goal:: Progressing Goal #4: pt independent with initial HEP Goal to be met by: 08/06/18 Progress towards Goal:: Progressing Clinical Administrative Coordinator Goals Goal #1: pt amb with AD functional community distances SBA Goal to be met by: 08/27/18 Goal #2: pt with improved with tinetti score Goal to be met by: 08/27/18 Goal #3: pt report ability to continue to perform normal household activities Goal to be met by: 08/27/18 Plan Dates of Clinical Administrative Coordinator Goals: 08/27/18 Expiration date of current Insurance Approval:: 08/27/18 PLAN: Continue with strengthening therex and bal activities.
--- NOTE | 2018-08-06 13:51 | RS.CXNS ---
Date of scheduled appointment: 08/06/18 Type: Cancel Reason for Cancel/NS: Janneth says she doesn't feel like getting out in the weather today.
--- NOTE | 2018-08-08 13:40 | RS.DYSPHTX ---
Dysphagia Treatment Note Date of Note: 08/08/18 Visit #: 3 Time of Treatment: 11:00 Subjective: Pt arrived to session early with daughter present. Daughter participated in skilled ST and received verbal education and training for aspiration precautions. The patient verbalized no new concerns with swallowing function, however had concerns with speech intelligibility. The CONFECTIONERY LABORATORY MANAGER noted decreased speech intelligibility impacting approximately 75% of spoken utterances. The patient and daughter verbalized use of thickener in drinks with all meals, and observed the Je free-water protocol between meals. Total treatment time: 60 - Short Term Goals Goal #1: Pt to complete oral motor exercises to increase ROM and coord 5x/10 reps. Activity/Accuracy: Anabel introduced, trained and educated. Pt completed 1x/10 attempts. Goal #2: thermal/sour stimulation to improve swallow initiation to 3-4 seconds. Goal #3: Pt to safely swallow liquids with PO intake w/o overt s/s of aspiration Goal #4: Safely consume diet textures presented over 25 min w/o overt s/s of asp. - Acid Purification Equipment Operator Goals Goal #1: Pt to verbalize safe swallow education to decrease risk for asp Goal #2: Pt to demonstrate use of comp/safe swallow strategies with PO intake. Goal #3: Pt to consume typical meal and liquids w/o overt s/s of aspiration. Assessment: The CONFECTIONERY LABORATORY MANAGER continued education and training with swallowing anatomy/ physiology to improve awareness symptoms with dysphagia. Aspiration risks education and trainign with focused verbal and visual information to increase awareness for risks with aspiration. Heimlich manuever and universal choking signs were also discussed in detail for pt safety. Food inventory was taken to guide the CONFECTIONERY LABORATORY MANAGER in pts current safe textures and to educate pt on concerns with current diet. Pt has a risk for aspiration with reported textures consumed in the home environment. The CONFECTIONERY LABORATORY MANAGER provided extension education to pt and daughter on risks. - Units Charged Swallowing Therapy: 4 - Plan Comments: Next session begin two more oral motor exercises. Provide printed sheet with list of exercises. PO trials with diet and liquids and practice with swallow strategies.
--- NOTE | 2018-08-11 14:38 | RS.OPPTDN ---
Subjective Date of Note: 08/11/18 Visit #: 8 Number of visits approved by Insurance: REassess at 10th Date of Evaluation: 07/16/18 Payer Source: MEDICARE Treatment Diagnosis: ALS, speech and swallow difficulty Current Subjective/complaints:: Patient says she is getting in/out of the car easier and was able to drive her and her to [employer] yesterday without difficulty. Granddaughter says she is able to see small improvements such as Janneth picking up her feet better when walking. *Precautions: fall precautions Interventions - Exercise/Activities/Manual Therapy Exercises/Activities: Patient is accompanied in by granddaughter and boyfriend. She begins with passive hamstring stretching bilaterally, SKTC, piriformis, and lower trunk rotation x 3 She performs QS, SAQ 3#, hams curls/DF increased to green tband, hip abd in hooklying increased to green tband, ball squeezes, trunk rotation with ball, resisted trunk rotation (x5), isometric hip flexion, bridging, alternating LE lift increased to 3# ea and 3# wand for bilateral UEs, SLR (x10) all 2 x 12 reps. Bilateral LE lift for lower ab crunch 2x10. Supine chest press and overhead bilateral shoulder flexion 6# 2x10. Chest press and overhead elevation, but also alternate LE lifting x 10 each. Sitting: Nudging with eyes open and closed for Ant/post/lateral shift 2x3. 4# wand for bilateral shoulder flexion, scap retraction green tband, alternate LAQ 3#, UBE unavailable. Standing at railing with CGA hip abd, marching x 10. Stationary bike forward x 4mins, 1 1/2 mins retro. Leg presses @ 30 and 45# 2 x 12 reps. Total minutes of Exercise: 48 Manual Therapy: n/a HOME EXERCISE PROGRAM: pt given written HEP including: AP, isometric hip add, SLR, hip abd/add, seated hip flex. - Charges Timed Code Treatment Minutes: 48 Total Treatment Time: 48 Procedures billed for this date of service:: ex2, neuro1 Assessment: Patient continues to progress with all therex, demo improved gait pattern. 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 She has just driven to [employer] yesterday feeling safe. She demo no posterior lean with sitting trunk exercises now. Patient Education: Education of diagnosis, Home Exercise Program, Home Safety, Education of Plan of Care Patient demonstrates compliance with HEP?: Yes Short Term Goals Goal #1: pt amb in dept with AD independently no LOB Goal to be met by: 08/06/18 Progress towards Goal:: Progressing Goal #2: pt with improved balance as noted by tinetti score 16/28 Goal to be met by: 08/06/18 Goal #3: Present with improved strength BLE 4/5 Goal to be met by: 08/06/18 Progress towards Goal:: Progressing Goal #4: pt independent with initial HEP Goal to be met by: 08/06/18 Progress towards Goal:: Progressing Nursing Home Goals Goal #1: pt amb with AD functional community distances SBA Goal to be met by: 08/27/18 Goal #2: pt with improved with tinetti score 19/28 Goal to be met by: 08/27/18 Goal #3: pt report ability to continue to perform normal household activities Goal to be met by: 08/27/18 Plan Dates of Nursing Home Goals: 08/27/18 Expiration date of current Insurance Approval:: 08/27/18 PLAN: Continue progressing bal therex
--- NOTE | 2018-08-13 16:39 | RS.OPPTDN ---
Subjective Date of Note: 08/13/18 Visit #: 9 Number of visits approved by Insurance: Reassess at 10th Date of Evaluation: 07/16/18 Payer Source: MEDICARE Treatment Diagnosis: ALS, speech and swallow difficulty Current Subjective/complaints:: Patient says she is walking steadier and better in general. *Precautions: fall precautions Interventions - Exercise/Activities/Manual Therapy Exercises/Activities: Patient is accompanied in by granddaughter and boyfriend. She begins with continued stretches: passive hamstring stretching bilaterally , SKTC, piriformis, figure 4, and lower trunk rotation x 3 She performs QS, SAQ increased 4#, hams curls/DF increased to green tband, hip abd in hooklying increased to blue tband, ball squeezes, trunk rotation with ball, resisted trunk rotation (x5), isometric hip flexion, bridging, alternating LE lift increased to 4# ea and 3# wand for bilateral UEs, SLR (x10) all 2 x 12 reps. Bilateral LE lift for lower ab crunch 2x10. Supine chest press and overhead bilateral shoulder flexion 6# 2x10. Chest press and overhead elevation, but also alternate LE lifting x 10 each. Sittin# each wrist and reaching bilaterally for ball across body, leaning down and reaching above head/ diagonals to challenge trunk bal multiple reps. Increased to 5# wand for bilateral shoulder flexion, scap retraction increased to blue tband. UBE unavailable. Standing at railing with CGA hip abd,marching x 10. Stationary bike forward x 4mins, 1 1/2 mins retro. Leg presses @ 30 and 45# 2 x 12 reps. Total minutes of Exercise: 53 Manual Therapy: n/a HOME EXERCISE PROGRAM: pt given written HEP including: AP, isometric hip add, SLR, hip abd/add, seated hip flex. - Charges Timed Code Treatment Minutes: 53 Total Treatment Time: 53 Procedures billed for this date of service:: ex2, neuro1 Assessment: Patient demo improved ambulation in our dept and continues to show improvement with trunk and sitting bal. She is able to get onto equipment with SBA now and less need for CARGO OPERATIONS AGENT. REassessment will be performed next session. Patient Education: Home Exercise Program, Education of Plan of Care Patient demonstrates compliance with HEP?: Yes Short Term Goals Goal #1: pt amb in dept with AD independently no LOB Goal to be met by: 08/06/18 Progress towards Goal:: Progressing Goal #2: pt with improved balance as noted by tinetti score Goal to be met by: 08/06/18 Goal #3: Present with improved strength BLE 4/5 Goal to be met by: 08/06/18 Progress towards Goal:: Progressing Goal #4: pt independent with initial HEP Goal to be met by: 08/06/18 Progress towards Goal:: Progressing Replacer Goals Goal #1: pt amb with AD functional community distances SBA Goal to be met by: 08/27/18 Goal #2: pt with improved with tinetti score Goal to be met by: 08/27/18 Goal #3: pt report ability to continue to perform normal household activities Goal to be met by: 08/27/18 Plan Dates of Replacer Goals: 08/27/18 Expiration date of current Insurance Approval:: 08/27/18 PLAN: Continue and reassess next session
--- NOTE | 2018-08-14 16:51 | RS.DYSPHTX ---
Dysphagia Treatment Note Date of Note: 08/14/18 Visit #: 4 Time of Treatment: 15:30 Subjective: Pt participated in session alone this date. Daughter was present at the end and reported poor eating skills with chewing and opening mouth. The patient verbalized concerns with biting lower lip when chewing. She also reported a dribble with saliva that has started occasionally. She went on to state that recently some of her pills have become stuck and more difficult to swallow. Total treatment time: 60 - Short Term Goals Goal #1: Pt to complete oral motor exercises to increase ROM and coord 5x/10 reps. Activity/Accuracy: Pt completed tongue hold 5x with 1x successful completed trial. Tongue protrusion was completed over 2 trials with ten repetitions requiring v/v cues to increase accuracy. BOT exercises completd over 2 trials with ten reps with moderate difficulty. Goal #2: thermal/sour stimulation to improve swallow initiation to 3-4 seconds. Goal #3: Pt to safely swallow liquids with PO intake w/o overt s/s of aspiration Activity/Accuracy: Pt swallowed five trials of thin liquid via open cup with verbal cues w/o overt s/s of aspiration. [place] trials completed with PO intake w/o overt s/s of aspiration. Goal #4: Safely consume diet textures presented over 25 min w/o overt s/s of asp. Activity/Accuracy: Pt consumed mechanical soft diet texture with moderate difficulty with oral phase and swallow initiation. No overt s/s of aspiration noted. Pudding texture consumed with minimal difficulty with swallow initiation and no overt s/s of aspiration. - Half-Way Goals Goal #1: Pt to verbalize safe swallow education to decrease risk for asp Goal #2: Pt to demonstrate use of comp/safe swallow strategies with PO intake. Goal #3: Pt to consume typical meal and liquids w/o overt s/s of aspiration. Assessment: Diet texture analysis, strategies, techniques, oral motor exercises , and safe swallowing awareness were all assessed. Pt required GOVERNMENT RELATIONS MANAGER to provide two technqiues with finger sweep and placement of diet trials to increase efficiency and safety with swallow/feeding. With new technqiues, pt improved oral phase and swallow response without requiring a liquid wash with every trial. GOVERNMENT RELATIONS MANAGER recommended liquid wash to decrease residuals on tongue. Oral motor exercises, required printed instructions and practice with a model to complete with best accuracy. Pt demonstrated understanding with safe swallow precautions for pacing and posture with PO intake. - Units Charged Swallowing Therapy: 4 - Plan Comments: Next session will include PO trials with demonstration of strategies, Exercises adding two more to list for home practice, and beginning speech assessment.
== END 2018-08-14 23:59 | disposition short-term general hospital (02) ==
PROVIDERS: ATTEND Family Medicine
DX: F80.0 Phonological disorder (principal); G12.21 Amyotrophic lateral sclerosis

== ENCOUNTER 2018-09-04 13:00 | Outpatient (RCR) ==
--- NOTE | 2018-08-18 15:30 | RS.OPPTDN ---
Subjective Date of Note: 08/18/18 Visit #: 10 Number of visits approved by Insurance: 2-3x6 Date of Evaluation: 07/16/18 Payer Source: MEDICARE Treatment Diagnosis: ALS, speech and swallow difficulty Current Subjective/complaints:: Patient says she is doing many tasks at home easier and without so much help from her granddaughter. She says she walks around in the store with holding onto grocery cart. 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 *Precautions: fall precautions Interventions - Exercise/Activities/Manual Therapy Exercises/Activities: Patient amb back to dept with INTERVENTION ANALYST, but not required. She begins with continued stretches: passive hamstring stretching bilaterally, SKTC, piriformis, figure 4, and lower trunk rotation x 3 She performs QS, SAQ 4#, hams curls/DF increased to blue tband, hip abd in hooklying increased to blue tband, ball squeezes, resisted trunk rotation (x5), bridging with alternating 5# overhead wand flexion, bilateral LE lift, alternating LE lift increased to 4# ea and 3# wand for bilateral UEs, SLR (x10) all 2 x 12 reps. Bilateral LE lift for lower ab crunch 2x10. Supine chest press and overhead bilateral shoulder flexion 6# 2x10. Chest press and overhead elevation, but also alternate LE lifting x 10 each. Sitting: Blue tband for scap retraction , 5# wand for bilateral shoulder elevation, standing: UBE 3 mins for/2 retro with very little posterior sway. Tinetti assessment, stationary bike x 6 mins. Total minutes of Exercise: 45 Manual Therapy: n/a HOME EXERCISE PROGRAM: pt given written HEP including: AP, isometric hip add, SLR, hip abd/add, seated hip flex. - Charges Timed Code Treatment Minutes: 45 Total Treatment Time: 45 Procedures billed for this date of service:: neuro1, ex2 Assessment: Patient demo 1 point improvement on Tinetti Assessment, demo improved steadiness with amb back to our dept. She is progressing well with all bal exercises demo less sway. She does maintain difficulty keeping her bal with standing and light nudging with eyes open/closed. Patient Education: Home Exercise Program, Education of Plan of Care Patient demonstrates compliance with HEP?: Yes Short Term Goals Goal #1: pt amb in dept with AD independently no LOB Goal to be met by: 08/06/18 Progress towards Goal:: Met Comments:: At present, INTERVENTION ANALYST and no LOB Goal #2: pt with improved balance as noted by tinetti score Goal to be met by: 08/06/18 Progress towards Goal:: Progressing Comments:: Goal #3: Present with improved strength BLE 10/17 Goal to be met by: 08/06/18 Progress towards Goal:: Met Goal #4: pt independent with initial HEP Goal to be met by: 08/06/18 Progress towards Goal:: Met Curator [employer] Goals Goal #1: pt amb with AD functional community distances SBA Goal to be met by: 08/27/18 Goal #2: pt with improved with tinetti score Goal to be met by: 08/27/18 Goal #3: pt report ability to continue to perform normal household activities Goal to be met by: 08/27/18 Plan Dates of [facility] Goals: 08/27/18 Expiration date of current Insurance Approval:: 08/27/18 PLAN: Patient to continue x 4 more sessions until LTG .
--- NOTE | 2018-08-19 12:00 | RS.OPPTDN ---
Subjective Date of Note: 08/18/18 Visit #: 10 Number of visits approved by Insurance: 18, but 3 more visits per LTG Date of Evaluation: 07/16/18 Payer Source: MEDICARE Treatment Diagnosis: ALS, speech and swallow difficulty Current Subjective/complaints:: Patient says, "I'm getting better." she is working on HEP. States granddaughter helps with heavy tasks at home, but she is able to do most all light activities around her home. When trying to think of specifics, she has a little trouble. *Precautions: fall precautions Interventions - Exercise/Activities/Manual Therapy Exercises/Activities: Patient amb back to dept with FARMWORKER FUR intermittently, but not required. She begins with continued stretches: passive hamstring stretching bilaterally, SKTC, piriformis, figure 4, and lower trunk rotation x 3 She performs QS, SAQ increased to 4#, hams curls/DF increased to blue tband, hip abd in hooklying increased to blue tband, ball squeezes, resisted trunk rotation (x5), bridging with alternating 5# overhead wand flexion, bilateral LE lift, alternating LE lift increased to 4# ea and 3# wand for bilateral UEs, SLR (x10) all 2 x 12 reps. Bilateral LE lift for lower ab crunch 2x10. Supine chest press and overhead bilateral shoulder flexion 6# 2x10. Chest press and overhead elevation, but also alternate LE lifting x 10 each. Sitting: Blue tband for scap retraction, 5# wand for bilateral shoulder elevation, holding 5# ball in front of trunk and alternating LE without any posterior sway for up to 10 sec's, standing: UBE 3 mins for/2 retro with very little posterior sway. Tinetti assessment, stationary bike x 6 mins. Total minutes of Exercise: 53 Manual Therapy: n/a HOME EXERCISE PROGRAM: pt given written HEP including: AP, isometric hip add, SLR, hip abd/add, seated hip flex. - Charges Timed Code Treatment Minutes: 53 Total Treatment Time: 53 Procedures billed for this date of service:: ex2, neuro1 Assessment: Patient only demo 1 point difference with Tinettis assessment, but has demo improvement now with no posterior sway during sitting exercises. She demo improved stabiity amb to our dept needing less assistance. Patient Education: Home Exercise Program, Home Safety, Education of Plan of Care Patient demonstrates compliance with HEP?: Yes Short Term Goals Goal #1: pt amb in dept with AD independently no LOB Goal to be met by: 08/06/18 Progress towards Goal:: Met Goal #2: pt with improved balance as noted by tinetti score Goal to be met by: 08/06/18 Progress towards Goal:: Progressing Goal #3: Present with improved strength BLE 4/5 Goal to be met by: 08/06/18 Progress towards Goal:: Met Goal #4: pt independent with initial HEP Goal to be met by: 08/06/18 Progress towards Goal:: Met Vp Of Marketing Goals Goal #1: pt amb with AD functional community distances SBA Goal to be met by: 08/27/18 Goal #2: pt with improved with tinetti score Goal to be met by: 08/27/18 Goal #3: pt report ability to continue to perform normal household activities Goal to be met by: 08/27/18 Plan Dates of Vp Of Marketing Goals: 08/27/18 Expiration date of current Insurance Approval:: 08/27/18 PLAN: Patient to complete and progress with further strengthening and bal until 08/27/18 LTG
--- NOTE | 2018-08-20 13:13 | RS.CXNS ---
Date of scheduled appointment: 08/20/18 Type: Cancel Reason for Cancel/NS: not feeling well
--- NOTE | 2018-08-21 10:41 | RS.PTSUM ---
Progress Note/Summary Date of Note: 08/18/18 Date of Evaluation: 07/16/18 Number of Visits: 10 Number of visits approved by Insurance: n/a Reporting Period for this Progress Note: 07/16/18-08/18/18 Current Complaints/Gains: pt reports she is more steady at home. She uses a shopping cart to hold on in community or uses granddtrs arm. Objective Measurements/Presentation: pt Tinetti score has improved from on eval to . However INTERVENTIONAL PHYSIATRIST has noticed increased trunk control and less posterior sway with amb. pt gait has improved to amb with SBA as well as intermittent FOOTBALL COACH. G Codes: n/a Source of G Code Score: n/a - Short Term Goals Goal #1: pt amb in dept with AD independently no LOB Goal to be met by: 08/06/18 Progress towards Goal:: Met Goal #2: pt with improved balance as noted by tinetti score Goal to be met by: 08/06/18 Progress towards Goal:: Progressing Goal #3: Present with improved strength BLE 4/5 Goal to be met by: 08/06/18 Progress towards Goal:: Met Goal #4: pt independent with initial HEP Goal to be met by: 08/06/18 Progress towards Goal:: Met - [facility] Goals Goal #1: pt amb with AD functional community distances SBA Goal to be met by: 08/27/18 Progress towards goal: Progressing Goal #2: pt with improved with tinetti score Goal to be met by: 08/27/18 Progress towards goal: Progressing Goal #3: pt report ability to continue to perform normal household activities Goal to be met by: 08/27/18 Progress towards goal: Progressing - Assessment Assessment of Improvement/Progress: pt has met STG 1, 3, 4 and progressing toward remaining goals. pt is improving with balance, trunk control. Feel pt would benefit from continuing through LTG dates of 08/27/18. Summary: Patient has made progress towards goals., Patient demonstrates potential to gain increased function with therapy - Plan Plan: Continue Plan of Care Frequency: 2 X week Duration: 2 weeks Dates of [facility] Gatherer Goals: 08/27/18 Expiration date of current Insurance Approval:: 08/27/18
--- NOTE | 2018-08-21 17:26 | RS.DYSPHTX ---
Dysphagia Treatment Note Date of Note: 08/21/18 Visit #: 5 Time of Treatment: 15:30 Subjective: Pt reported no new changes with speech or swallowing. The pt stated she completes her oral motor exercises daily. She also verbalized no choking episodes and continues use with nectar thick consistency with all PO intake. Je free-water protocol is used as wanted and no difficulty reported. Total treatment time: 60 - Short Term Goals Goal #1: Pt to complete oral motor exercises to increase ROM and coord 5x/10 reps. Activity/Accuracy: Pt completed four exercises. New lingual tip exercise introduced and completed with moderate difficulty. 10 reps completed over four repetitions requiring v/v cues and breaks in reps of 5-10. Goal #2: thermal/sour stimulation to improve swallow initiation to 3-4 seconds. Goal #3: Pt to safely swallow liquids with PO intake w/o overt s/s of aspiration Activity/Accuracy: [place] trials presented with PO intake. No overt s/s of aspiration observed. 1x labial spillage d/t poor labial seal and pressure. Goal #4: Safely consume diet textures presented over 25 min w/o overt s/s of asp. Activity/Accuracy: Pt consumed mechanical soft snack. No overt s/s of aspiration. Demonstration of compensatory swallow technqiues observed with v/v cues. - Personal Clothing Laundry Aide Goals Goal #1: Pt to verbalize safe swallow education to decrease risk for asp Goal #2: Pt to demonstrate use of comp/safe swallow strategies with PO intake. Goal #3: Pt to consume typical meal and liquids w/o overt s/s of aspiration. Assessment: Speech was assessed this date. The COMPUTER SYSTEMS TECHNOLOGY INSTRUCTOR introduced techniques with over-articulation and mirror feedback. The pt required the COMPUTER SYSTEMS TECHNOLOGY INSTRUCTOR to model the techniques. She increased loudness frequently. When the pt practiced without voicing, she could produce over articulation with habitual voice after 2-3 practice trials. New oral motor exercise completed. The pt required finger assistance and max verbal cues to produce the exercise over five repetitions. The COMPUTER SYSTEMS TECHNOLOGY INSTRUCTOR also assessed the pt's demonstration of safe swallow precautions and compensatory swallow strategies. with verbal cues, the pt could verbalize 2/3 safe swallow precautions, and demonstrate 3/3 compensatory swallow strategies. - Units Charged Swallowing Therapy: 4 - Plan Comments: Next session continue to address speech intelligibility. PO intake, continue assessment with safe swallow awareness. Review oral motor exercises for functional swallow. Begin laryngeal massage due to tight neck muscles.
--- NOTE | 2018-09-04 13:54 | RS.DYSPHTX ---
Dysphagia Treatment Note Date of Note: 09/04/18 Visit #: 6 Time of Treatment: 13:00 Total treatment time: 45 - Short Term Goals Goal #1: Pt to complete oral motor exercises to increase ROM and coord 5x/10 reps. Goal #2: thermal/sour stimulation to improve swallow initiation to 3-4 seconds. Goal #3: Pt to safely swallow liquids with PO intake w/o overt s/s of aspiration Goal #4: Safely consume diet textures presented over 25 min w/o overt s/s of asp. - Prison Goals Goal #1: Pt to verbalize safe swallow education to decrease risk for asp Goal #2: Pt to demonstrate use of comp/safe swallow strategies with PO intake. Goal #3: Pt to consume typical meal and liquids w/o overt s/s of aspiration. Assessment: Pt verbalized two different concerns with swallowing function. Medications and biting her lip when she eats. The [employer] provided education regarding three techniques to use to increase sensation in oral cavity and labials. The [employer] also educated pt on medication administration techniques. Pt was very emotional this date and required counseling regarding ALS and changes with lifestyle and eating patterns. - Units Charged Swallowing Therapy: 3 - Plan Comments: Follow-up with counseling and emotional state. Continue safe swallowing education. Discuss concerns with daughter.
== END 2018-09-11 23:59 ==
PROVIDERS: ATTEND Family Medicine
DX: F80.0 Phonological disorder (principal); G12.21 Amyotrophic lateral sclerosis

== ENCOUNTER 2018-10-01 13:56 | Emergency (ER) | payer OTHER ==
[2018-10-01 14:04] VITALS: BP 106/70; TEMP 97.8; BMI 24.6
--- NOTE | 2018-10-01 14:19 | ED.PDOC ---
General ED Provider: Dr. YOLIE PIERSON MD Chief Complaint: Fall Stated Complaint: fall on face Time Seen by Physician: 14:04 Mode of Arrival: Wheelchair Information Source: Patient, Family Exam Limitations: Physical impairment Primary Care Provider: MACHO PELAEZ Nursing and Triage Documentation Reviewed and Agree: Yes Does patient meet sepsis criteria?: No If yes, has appropriate treatment been initiated?: Yes System Inflammatory Response Syndrome: Not Applicable Sepsis Protocol: For patient's 13 years and over: Temp is 96.8 and below OR 101 and greater Pulse >90 BPM Resp >20/minute Acutely Altered Mental Status Are patient's symptoms suggestive of a new infection, such as: -Pneumonia -Skin, Soft Tissue -Endocarditis -UTI -Bone, Joint Infection -Implantable Device -Acute Abdominal Infection -Wound Infection -Meningitis -Blood Stream Catheter Infection -Unknown Review of Systems - Review Of Systems Constitutional: Reports: No symptoms Eyes: Reports: No symptoms Ears, Nose, Mouth, Throat: Reports: No symptoms Respiratory: Reports: No symptoms Cardiac: Reports: No symptoms GI: Reports: No symptoms : Reports: No symptoms Musculoskeletal: Reports: No symptoms Skin: Reports: No symptoms Neurological: Reports: No symptoms Endocrine: Reports: No symptoms Hematologic/Lymphatic: Reports: No symptoms All Other Systems: Reviewed and Negative Past Medical History - Past Medical History Previously Healthy: Yes Endocrine: Reports: Hypothyroid Cardiovascular: Reports: Hypertension Respiratory: Reports: None Hematological: Reports: None Gastrointestinal: Reports: None Genitourinary: Reports: None Neuro/Psych: Reports: None Musculoskeletal: Reports: None Cancer: Reports: None Last Menstrual Period: NA - Surgical History General Surgical History: Reports: None - Family History Family History: Reports: None - Social History Smoking Status: Never smoker Hx Substance Use: No Alcohol Screening: None Physical Exam - Physical Exam Appearance: Well-appearing, Well-nourished, Thin Ill-appearing: Mild Pain Distress: Mild Eyes: JUAN, EOMI, Conjunctiva clear ENT: Ears normal, Nose normal, Oropharynx normal Neck: Supple Respiratory: Airway patent, Breath sounds clear, Breath sounds equal, Respirations nonlabored Cardiovascular: RRR, Pulses normal, No rub, No murmur GI/: Soft, Nontender, No masses, Bowel sounds normal, No Organomegaly Musculoskeletal: Normal strength, ROM intact, No edema, No calf tenderness Skin: Warm (abrasion on r forehead and nose, swelling+) Neurological: Sensation intact, Motor intact, Reflexes intact, Cranial nerves intact, Alert, Oriented Psychiatric: Affect appropriate, Mood appropriate Critical Care Note - Critical Care Note Total Time (mins): 0 Course - Course Orders, Labs, Meds: Orders Category Date Time Status NPO REMINDER: IMAGING ONCE CARE 10/01/18 14:[address] HEAD W/O CONTRAST Stat RADS 10/01/18 14:[address] MAXILLOFACIAL W/O CONTRAST Stat RADS 10/01/18 14:14 Completed Vital Signs: Temp Pulse Resp BP Pulse Ox 10/01/18 13:59 97.8 F 65 16 106/70 96 Departure - Departure Time of Disposition: 16:00 (.) Disposition: HOME SELF-CARE Discharge Problem: Facial contusion Qualifiers: Encounter type: initial encounter Qualified Code(s): S00.83XA - Contusion of other part of head, initial encounter Instructions: Facial Contusion (ED) Condition: Good Pt referred to PMD for follow-up: Yes IPMP verified?: No Allergies/Adverse Reactions: Allergies No Known Allergies Allergy (Unverified 10/01/18 13:58) Home Medications: Ambulatory Orders Levothyroxine Sodium [Levo-T] 25 mcg PO DAILY 07/03/16 Lisinopril 5 mg PO DAILY 07/03/16 Transfer Form Completed: No Disposition Discussed With: Patient, Family
--- NOTE | 2018-10-01 14:52 | CT ---
EXAM: CT of the head without contrast History: Headache. Head trauma Technique: Multiplanar CT images through the head were obtained without the administration of IV con trast Findings: The visualized paranasal sinuses and mastoid air cells are clear in general. No acute calv arial abnormalities. Intracranially the ventricular and cisternal spaces are normal in size, shape and configuration for a patient of this age. No dominant mass or midline shift. No hydrocephalous. No acute intracranial hemorrhage or abnormal extraaxial fluid collections. Impression: No acute intracranial process
--- NOTE | 2018-10-01 14:56 | CT ---
EXAM: CT of the maxillofacial region without contrast History: Facial trauma. Technique: Multiplanar CT images through the maxillofacial region were obtained without the administ ration of IV contrast Findings: Orbits are intact. Surrounding soft tissues demonstrate no acute findings. No acute intr acranial findings. No acute fracture or dislocation. Paranasal sinuses are clear. Mastoid air cell s are clear. Nasal septum is bowed to the right. Bilateral ostiomeatal units are not occluded. Impression: No acute findings
== END 2018-10-01 16:01 | disposition home or self-care (01) ==
LOC: ED 13:56
DX: W19.XXXA Unspecified fall, initial encounter (principal); S00.83XA Contusion of other part of head, initial encounter
CPT/HCPCS: 99283